=== PATIENT | male | born 1975 | race Two or more races ===

== ENCOUNTER 2024-07-10 19:01 | Emergency (ER) | payer OTHER ==
[~2024-07-10] VITALS: Ht 172.7 cm; Wt 80.7 kg
[2024-07-10] MEDS ORDERED: CARAFATE1 GM (19:09)
[2024-07-10] MEDS ORDERED: DEXLANSOPRAZOLE60 MG PO (19:09)
[2024-07-10] MEDS ORDERED: PEPCID AC20 MG (19:10)
[2024-07-10] MEDS ORDERED: 0.9 % SODIUM CHLORIDE 1,000 ML IV ONE (20:30)
[2024-07-10] MEDS ORDERED: FAMOtidine 10 MG/ML (4ML VIAL) IV ONE (20:30)
[2024-07-10] MEDS ORDERED: CIPROFLOXACIN IN 5 % DEXTROSE 400 MG/200 ML PIGGYBAG IV ONE (20:30)
[2024-07-10] MEDS ORDERED: METRONIDAZOLE/SODIUM CHLORIDE 500 MG/100 ML PIGGYBACK IV ONE (20:30)
[2024-07-10] MEDS ORDERED: ONDANSETRON HCL 2 MG/ML VIAL IV ONE (20:30)
[2024-07-10 21:13] LABS: BASO % 0.2 % (0.1-1.2); HEMATOCRIT 42.8 % (40.1-51.0); HEMOGLOBIN 15.2 g/dL (13.7-17.5); LYMPH % 8.5 % (19.3-53.1); MEAN CORPUSCULAR HEMOGLOBIN 29.3 pg (25.6-32.2); MONO # 0.86 (0.24-0.82); MONO % 8.2 % (4.7-12.5); NEUT # 8.73 (1.56-6.13); NEUT % 82.9 % (34.0-71.1); PLATELET COUNT 179 K/uL (163-369); RED BLOOD COUNT 5.19 M/uL (4.63-6.08); RED CELL DISTRIBUTION WIDTH 13.3 % (11.6-14.4)
[2024-07-10 21:40] LABS: BILIRUBIN TOTAL 0.78 mg/dL (0.3-1.2); CALCIUM 9.2 mg/dL (8.5-10.1); CREATININE SERUM 0.98 mg/dL (0.70-1.30); GFR 80.96; GLOBULINA 3.3 G/DL (2.4-3.5); POTASSIUM 4.12 mEq/L (3.5-5.1); TOTAL PROTEIN 7.3 gm/dL (6.4-8.2)
[2024-07-10 21:51] LABS: INFLUENZA A AG NEGATIVE (NEGATIVE)
[2024-07-10 21:52] LABS: COVID-19 AG NEGATIVE (NEGATIVE)
[2024-07-10] MEDS ORDERED: KETOROLAC TROMETHAMINE 30 MG VIAL IV ONE (22:45)
[2024-07-10] MEDS ORDERED: PROTONIX40 MG PO (23:26)
[2024-07-10] MEDS ORDERED: PROBIOTIC1 EAC2 PO (23:26)
[2024-07-10] MEDS ORDERED: KETO10TA2 PO (23:26)
== END 2024-07-11 | disposition home or self-care (01) ==
LOC: ER 20:12
PROVIDERS: General Practice
DX: R19.7 Diarrhea, unspecified (principal); Z20.822 Contact with and (suspected) exposure to COVID-19